=== PATIENT | male | born 1980 | race African-American/Black ===

== ENCOUNTER 2023-07-27 15:03 | Emergency (ER) | payer BC, OTHER ==
[~2023-07-27] VITALS: Ht 170.2 cm; Wt 56.7 kg
[2023-07-27] MEDS ORDERED: LIDOCAINE 1%-EPI 1:100,000 20 ML VIAL ONE (16:49)
[2023-07-27] MEDS ORDERED: KETOROLAC TROMETHAMINE INJ 30 MG/ML VIAL ONE (16:57)
[2023-07-27] MEDS ORDERED: LIDOCAINE 1%-EPI 1:100,000 20 ML VIAL TP ONE (17:00)
[2023-07-27] MEDS ORDERED: KETOROLAC TROMETHAMINE INJ 60 MG/2 ML VIAL IM ONE (17:00)
[2023-07-27] MEDS ORDERED: IBUP-1955 PO (17:36)
[2023-07-27] MEDS ORDERED: CLIN300C12 PO (17:36)
[2023-07-27 18:03] VITALS: BP 110/84; TEMP 98.7; O2SAT 100
[2023-07-28] MEDS ORDERED: IBUP-1955 PO (10:01)
[2023-07-28] MEDS ORDERED: CLIN300C12 PO (10:01)
== END 2023-07-27 18:04 | disposition home or self-care (01) ==
LOC: ER 15:06
DX: L02.31 Cutaneous abscess of buttock (principal); Z88.0 Allergy status to penicillin; Z88.2 Allergy status to sulfonamides
CPT/HCPCS: 99283; 10060; 96372; J1885; A6403; A6407; J3490